=== PATIENT | male | born 1990 | race Caucasian/White ===

== ENCOUNTER 2016-08-30 10:47 | Outpatient (CLI) | payer OTHER ==
--- NOTE | 2016-08-30 12:25 | DIAGNOSTIC IMAGING REPORT ---
PROCEDURE: XR ELBOW 3 OR 4 VIEWS - RIGHT INDICATION: R ELBOW PX TECHNIQUE: Four views. COMPARISON: None. FINDINGS: Osseous structures and joint spaces are normal. No evidence of an effusion. IMPRESSION: 1. Normal right elbow.
== END 2016-08-30 23:00 ==
LOC: XR SRH 10:47
DX: M25.521 Pain in right elbow (principal)